=== PATIENT | female | born 1995 | race Caucasian/White ===

== ENCOUNTER 2018-01-03 15:45 | Emergency (ER) | payer MEDICAID ==
[~2018-01-03] VITALS: Ht 154.9 cm; Wt 66.7 kg
[2018-01-03 16:14] VITALS: BP 134/61
== END 2018-01-03 17:35 | disposition home or self-care (01) ==
LOC: ER 15:48
DX: S92.421A Displaced fracture of distal phalanx of right great toe, initial encounter for closed fracture (principal); W07.XXXA Fall from chair, initial encounter; Y93.89 Activity, other specified; Y92.89 Other specified places as the place of occurrence of the external cause; Y99.8 Other external cause status
CPT/HCPCS: 73630; 99284; A4606; Z7610

== ENCOUNTER 2018-06-16 18:21 | Emergency (ER) | payer MEDICAID ==
[~2018-06-16] VITALS: Ht 152.4 cm; Wt 76.7 kg
[2018-06-16 18:21] VITALS: BP 106/76
--- NOTE | 2018-06-16 19:43 | NUR ---
MD AT BEDSIDE FOR EVALUATION
--- NOTE | 2018-06-16 19:45 | NUR ---
PT REFUSED BLOOD DRAW, IV FLUIDS, AND IV MEDICATIONS. MD METCALF.
[2018-06-16] MEDS ORDERED: KETOROLAC TROMETHAMINE 15 MG/ML VIAL ONE (19:48)
[2018-06-16] MEDS ORDERED: ONDANSETRON HCL/PF 4 MG/2 ML VIAL ONE (19:48)
[2018-06-16] MEDS ORDERED: KETOROLAC TROMETHAMINE INJ 30 MG/ML VIAL IV ONE (20:00)
[2018-06-16] MEDS ORDERED: FAMOTIDINE (20 MG) 20 MG TABLET PO ONE (20:00)
[2018-06-16] MEDS ORDERED: FAMOTIDINE/PF INJ 20 MG/2 ML VIAL IV ONE (20:00)
[2018-06-16] MEDS ORDERED: MAG HYDROX/AL HYDROX/SIMETH 30 ML UDC PO ONE (20:00)
[2018-06-16] MEDS ORDERED: ONDANSETRON HCL/PF 4 MG/2 ML VIAL IVP ONE (20:00)
[2018-06-16] MEDS ORDERED: IV NS 0.9% 1,000 ML BAG IV ONE (20:00)
[2018-06-16] MEDS ORDERED: FAMOTIDINE (20 MG) 20 MG TABLET ONE (20:24)
[2018-06-16] MEDS ORDERED: MAG HYDROX/AL HYDROX/SIMETH 30 ML UDC ONE (20:24)
== END 2018-06-16 21:00 | disposition home or self-care (01) ==
LOC: ER 18:23
DX: A08.4 Viral intestinal infection, unspecified (principal); R11.10 Vomiting, unspecified; R19.7 Diarrhea, unspecified
CPT/HCPCS: 99283; A4606; J1885; J2405; J7030; Z7610

== ENCOUNTER 2018-09-24 16:18 | Emergency (ER) | payer MEDICAID ==
[~2018-09-24] VITALS: Ht 152.4 cm; Wt 74.8 kg
[2018-09-24 16:30] VITALS: BP 120/75
== END 2018-09-24 18:00 | disposition home or self-care (01) ==
LOC: ER 16:21
DX: M79.661 Pain in right lower leg (principal); W18.39XA Other fall on same level, initial encounter; Y93.89 Activity, other specified; Y92.89 Other specified places as the place of occurrence of the external cause; Y99.8 Other external cause status
CPT/HCPCS: 73590-TC

== ENCOUNTER 2018-11-11 09:52 | Emergency (ER) | payer MEDICAID ==
[~2018-11-11] VITALS: Ht 152.4 cm; Wt 77.1 kg
--- NOTE | 2018-11-11 10:15 | NUR ---
PATIENT ARRIVED AT UNIT AMBULATORY. A&O X 4. NO ACUTE DISTRESS. WITH C/O PRESSURE-LIKE NON-RADIATING DISCOMFORT ON CHEST SINCE LAST NIGHT AT 7PM, REPORTS IT WORSENS WITH BREATHING.
--- NOTE | 2018-11-11 10:44 | NUR ---
DR PITTS AT BEDSIDE
[2018-11-11 11:07] LABS: BASOPHILS # (AUTO) 0.1 /CMM (0.0-0.2); BASOPHILS % (AUTO) 1.1 % (0.0-2.0); EOSINOPHILS % (AUTO) 1.9 % (0.0-6.0); HEMATOCRIT 43 % (33-45); HEMOGLOBIN 14.4 g/dL (11.5-14.8); LYMPHOCYTES # (AUTO) 1.6 /CMM (0.8-4.8); LYMPHOCYTES % (AUTO) 25.5 % (20.0-44.0); MEAN CORPUSCULAR HGB CONC 34 g/dl (31.0-36.0); MEAN CORPUSCULAR VOLUME 92 fL (82-100); MONOCYTES # (AUTO) 0.4 /CMM (0.1-1.30); MONOCYTES % (AUTO) 6.1 % (2.0-12.0); NEUTROPHILS # (AUTO) 4.2 /CMM (1.8-8.9); NEUTROPHILS % (AUTO) 65.4 % (43.0-81.0); PLATELET COUNT (AUTO) 325 /CMM (150-450); RED BLOOD CELL COUNT(AUTO) 4.62 MIL/uL (4.0-5.2); WHITE BLOOD COUNT (AUTO) 6.4 K/uL (4.3-11.0)
[2018-11-11 11:16] LABS: CALCIUM, SERUM 9.2 mg/dL (8.5-10.1); CARBON DIOXIDE 27 mmol/L (21-32); CHLORIDE 106 mmol/L (98-107); CREATININE 0.6 mg/dL (0.6-1.3); GLUCOSE 95 mg/dL (74-106); POTASSIUM 4.2 mmol/L (3.5-5.1); SODIUM SERUM 141 mmol/L (136-145); UREA NITROGEN, BLOOD 10 mg/dL (7-18)
[2018-11-11 12:20] VITALS: BP 120/72
--- NOTE | 2018-11-11 12:22 | NUR ---
For discharge -aftercare instructions given verbalized understanding. Home ambulatory Stable
== END 2018-11-11 12:22 | disposition home or self-care (01) ==
LOC: ER 09:52
DX: R07.89 Other chest pain (principal)
CPT/HCPCS: 36415; 71045-TC; 80048-TC; 84484-TC; 85025-TC

== ENCOUNTER 2018-12-26 13:26 | Emergency (ER) | payer MEDICAID ==
[~2018-12-26] VITALS: Ht 152.4 cm; Wt 77.1 kg
[2018-12-26 13:26] VITALS: BP 107/61
== END 2018-12-26 14:30 | disposition home or self-care (01) ==
LOC: ER 13:31
DX: H60.92 Unspecified otitis externa, left ear (principal)

== ENCOUNTER 2018-12-27 17:51 | Emergency (ER) | payer MEDICAID ==
[~2018-12-27] VITALS: Ht 154.9 cm; Wt 77.6 kg
[2018-12-27 18:02] VITALS: BP 124/74
--- NOTE | 2018-12-27 19:18 | NUR ---
Patient discharged to home in stable condition. Written and verbal after care instructions given. Patient verbalizes understanding of instruction.
== END 2018-12-27 19:21 | disposition home or self-care (01) ==
LOC: ER 17:51
DX: H60.92 Unspecified otitis externa, left ear (principal)

== ENCOUNTER 2020-06-16 23:47 | Emergency (ER) | payer MEDICAID, OTHER ==
[~2020-06-16] VITALS: Ht 154.9 cm; Wt 83.5 kg
[2020-06-16 23:49] VITALS: BP 126/80
--- NOTE | 2020-06-17 00:17 | NUR ---
pt is medcally stable for D/C. Patient discharged to home in stable condition. Written and verbal after care instructions given. Patient verbalizes understanding of instruction.
== END 2020-06-17 00:17 | disposition home or self-care (01) ==
LOC: ER 23:51
DX: D17.1 Benign lipomatous neoplasm of skin and subcutaneous tissue of trunk (principal)

== ENCOUNTER 2020-07-08 01:04 | Emergency (ER) | payer OTHER ==
[~2020-07-08] VITALS: Ht 154.9 cm; Wt 83.9 kg
--- NOTE | 2020-07-08 01:21 | NUR ---
BIBSELF C/O UPPER ABDOMINAL PAIN X1 DAY +NAUSEA, PT AAOX4, -SOB, NAD NOTED, VSS, MANOLO MILES
[2020-07-08] MEDS ORDERED: LIDOCAINE VISCOUS 2% UD 15 ML UDC MM ONE (01:30)
[2020-07-08] MEDS ORDERED: MAG HYDROX/AL HYDROX/SIMETH 30 ML UDC PO ONE (01:30)
[2020-07-08] MEDS ORDERED: FAMOTIDINE (20 MG) 20 MG TABLET PO ONE (01:30)
[2020-07-08] MEDS ORDERED: LIDOCAINE VISCOUS 2% UD 15 ML UDC ONE (01:42)
[2020-07-08] MEDS ORDERED: MAG HYDROX/AL HYDROX/SIMETH 30 ML UDC ONE (01:42)
[2020-07-08] MEDS ORDERED: FAMOTIDINE (20 MG) 20 MG TABLET ONE (01:42)
[2020-07-08 02:09] LABS: BILIRUBIN,URINE NEGATIVE (NEGATIVE); COLOR,URINE YELLOW (YELLOW); LEUKOCYTE ESTERASE ,URINE NEGATIVE (NEGATIVE); NITRITE, URINE NEGATIVE (NEGATIVE); PROTEIN,URINE NEGATIVE (NEGATIVE); UGLUCOSE NEGATIVE (NEGATIVE); UROBILINOGEN,URINE 0.2 EU/dL (0.2)
[2020-07-08 02:09] LABS: BASOPHILS % (AUTO) 0.5 % (0.0-2.0); EOSINOPHILS % (AUTO) 2.6 % (0.0-6.0); HEMATOCRIT 42 % (33-45); HEMOGLOBIN 14.1 g/dL (11.5-14.8); LYMPHOCYTES # (AUTO) 2.3 /CMM (0.8-4.8); LYMPHOCYTES % (AUTO) 33.5 % (20.0-44.0); MEAN CORPUSCULAR HGB CONC 33 g/dl (31.0-36.0); MEAN CORPUSCULAR VOLUME 92 fL (82-100); MONOCYTES # (AUTO) 0.5 /CMM (0.1-1.30); MONOCYTES % (AUTO) 7.4 % (2.0-12.0); NEUTROPHILS # (AUTO) 3.9 /CMM (1.8-8.9); PLATELET COUNT (AUTO) 301 /CMM (150-450); RED BLOOD CELL COUNT(AUTO) 4.62 MIL/uL (4.0-5.2)
[2020-07-08 02:10] LABS: BLOOD, URINE NEGATIVE Ery/uL (NEGATIVE)
[2020-07-08 02:21] LABS: CARBON DIOXIDE 28 mmol/L (21-32); CHLORIDE 105 mmol/L (98-107); CREATININE 0.7 mg/dL (0.6-1.3); GLUCOSE 98 mg/dL (74-106); POTASSIUM 3.7 mmol/L (3.5-5.1); SODIUM SERUM 141 mmol/L (136-145); UREA NITROGEN, BLOOD 13 mg/dL (7-18)
[2020-07-08 02:25] LABS: ALANINE AMINOTRANSFERASE 29 U/L (12-78); ALBUMIN 3.9 g/dL (3.4-5.0); ALKALINE PHOSPHATASE 89 U/L (46-116); ASPARTATE AMINOTRANSFERASE 19 U/L (15-37); BILIRUBIN,DIRECT 0.1 mg/dL (0.0-0.2); BILIRUBIN,TOTAL 0.2 mg/dL (0.2-1.0); LIPASE 116 U/L (73-393); TOTAL PROTEIN, SERUM 7.5 g/dL (6.4-8.2)
[2020-07-08] MEDS ORDERED: ONDANSETRON 4 MG TAB.RAPDIS ONE (03:03)
--- NOTE | 2020-07-08 03:25 | NUR ---
Patient discharged to home in stable condition. Written and verbal after care instructions given. Patient verbalizes understanding of instruction.IV removed. Catheter intact and site benign. Pressure and 4x4 applied to site. No bleeding noted.
[2020-07-08 03:26] VITALS: BP 120/75
[2020-07-08] MEDS ORDERED: ONDANSETRON 4 MG TAB.RAPDIS SL ONE (03:30)
== END 2020-07-08 03:26 | disposition home or self-care (01) ==
LOC: ER 01:06
DX: R10.10 Upper abdominal pain, unspecified (principal); K59.00 Constipation, unspecified; R10.13 Epigastric pain
CPT/HCPCS: 36415; 71045; 80048; 80076; 81003; 83690; 84484; 84702; 85025; 93005; 99285; Q0162

== ENCOUNTER 2021-04-19 18:37 | Emergency (ER) | payer OTHER ==
[~2021-04-19] VITALS: Ht 152.4 cm; Wt 84.8 kg
[2021-04-19 19:13] VITALS: BP 117/66
[2021-04-19] MEDS ORDERED: BACI30OI9 TP (20:13)
[2021-04-19] MEDS ORDERED: IBUP-1955 PO (20:13)
[2021-04-19] MEDS ORDERED: CEPH500T PO (20:13)
== END 2021-04-19 20:34 | disposition home or self-care (01) ==
LOC: ER 18:58
DX: S80.212A Abrasion, left knee, initial encounter (principal); Z79.899 Other long term (current) drug therapy; W01.0XXA Fall on same level from slipping, tripping and stumbling without subsequent striking against object, initial encounter; Y93.89 Activity, other specified; Y92.89 Other specified places as the place of occurrence of the external cause; Y99.8 Other external cause status
CPT/HCPCS: 73564-TC

== ENCOUNTER 2022-08-11 09:00 | Emergency (ER) | payer OTHER ==
[~2022-08-11] VITALS: Ht 154.9 cm; Wt 83.0 kg
[2022-08-11 09:00] VITALS: BP 110/69
[~2022-08-11 09:00] MED LIST: BACI30OI9 TP; CEPH500T PO; IBUP-1955 PO
[2022-08-11] MEDS ORDERED: AMOX-430 PO (09:53)
[2022-08-11] MEDS ORDERED: NEOM10DR11 EACH EAR (09:53)
[2022-08-11] MEDS ORDERED: IBUP-1955 PO (09:53)
== END 2022-08-11 11:05 | disposition home or self-care (01) ==
LOC: ER 09:01
DX: H60.392 Other infective otitis externa, left ear (principal); L04.0 Acute lymphadenitis of face, head and neck; Z79.899 Other long term (current) drug therapy